=== PATIENT | female | born 1980 | race Caucasian/White ===

== ENCOUNTER → 2024-12-10 | Outpatient (CLI) | payer SELFPAY ==
[2024-12-10 10:04] VITALS: TEMP 98.5
[2024-12-10 11:05] VITALS: BP 138/86; O2SAT 98
== END ==
LOC: M WHCPRO 09:52
PROVIDERS: ATTEND Surgery
DX: N63.15 Unspecified lump in the right breast, overlapping quadrants (principal); C50.411 Malignant neoplasm of upper-outer quadrant of right female breast; C77.3 Secondary and unspecified malignant neoplasm of axilla and upper limb lymph nodes
CPT/HCPCS: 10035; 19083; 38505; 77065; 88305; A4648

== ENCOUNTER → 2024-12-12 | Outpatient (CLI) | payer SELFPAY ==
[~2024-12-12] MED LIST: PROHANCE 279.3MG/ML 15ML VIAL ONE; PROHANCE 279.3MG/ML 5ML VIAL ONE
== END ==
LOC: M PLAIMG 12:01
PROVIDERS: ATTEND Surgery
DX: N63.15 Unspecified lump in the right breast, overlapping quadrants (principal); C50.811 Malignant neoplasm of overlapping sites of right female breast
CPT/HCPCS: A9576; C8908

== ENCOUNTER → 2024-12-30 | Outpatient (CLI) | payer SELFPAY | LOC: M CARPUL 15:18 | PROVIDERS: ATTEND Specialist | DX: C50.919 Malignant neoplasm of unspecified site of unspecified female breast (principal); I34.0 Nonrheumatic mitral (valve) insufficiency; I36.1 Nonrheumatic tricuspid (valve) insufficiency ==

== ENCOUNTER → 2024-12-30 | Outpatient (CLI) | payer SELFPAY ==
[~2024-12-30] MED LIST changes: -PROHANCE 279.3MG/ML 15ML VIAL ONE; -PROHANCE 279.3MG/ML 5ML VIAL ONE; +SODIUM CHLORIDE 0.9% INJ 10 ML SYR IV PRN; +SODIUM CHLORIDE 0.9% INJ 10 ML SYR IV SCH
== END ==
LOC: M IRPRO 09:50
PROVIDERS: ATTEND Specialist
DX: C50.919 Malignant neoplasm of unspecified site of unspecified female breast (principal)
CPT/HCPCS: 36569; C1751

== ENCOUNTER → 2025-01-05 | Outpatient (CLI) | payer SELFPAY | LOC: M PLARAD 11:15 | PROVIDERS: ATTEND Surgery | DX: C50.811 Malignant neoplasm of overlapping sites of right female breast (principal) | CPT/HCPCS: 78816; A9552 ==

== ENCOUNTER → 2025-02-12 | Outpatient (CLI) | payer SELFPAY ==
[~2025-02-12] VITALS: Ht 160 cm; Wt 88.2 kg
[~2025-02-12] MED LIST changes: +ONDA-84 PO; +PROC10TA5 PO; -SODIUM CHLORIDE 0.9% INJ 10 ML SYR IV PRN; -SODIUM CHLORIDE 0.9% INJ 10 ML SYR IV SCH
[2025-02-12 12:20] VITALS: TEMP 98.1
[2025-02-12] MEDS: NS (Normal Saline) 0.9% 1,000 ML IV SCH (13:06)
[2025-02-12] MEDS: ceFAZolin SODIUM 2 GM in DEXTROSE 5% (D5W) ADV/MINI-BAG 50 ML IV ONE (13:06)
[2025-02-12] MEDS: MIDAZOLAM INJ 2 MG/2 ML VIAL IV PRN (13:06)
[2025-02-12] MEDS: LIDOCAINE 1% MDV 20 ML VIAL SC SCH (13:16)
[2025-02-12 14:00] VITALS: BP 124/66; O2SAT 98
== END ==
LOC: M IRPRO 11:55
PROVIDERS: ATTEND Specialist
DX: C50.919 Malignant neoplasm of unspecified site of unspecified female breast (principal)
CPT/HCPCS: 36561; 99152; J0688; J1642; J2250; J3010

== ENCOUNTER → 2025-03-02 | Outpatient (POV) | payer SELFPAY ==
[~2025-03-02] VITALS: Ht 162.6 cm; Wt 90.9 kg
[~2025-03-02] MED LIST changes: +LIDO30CR18 TOP
[2025-03-02 09:56] VITALS: BP 124/77; O2SAT 99
== END ==
LOC: M IRPOV 09:49
PROVIDERS: ATTEND Registered Nurse School
DX: Z45.2 Encounter for adjustment and management of vascular access device (principal); C50.919 Malignant neoplasm of unspecified site of unspecified female breast

== ENCOUNTER → 2025-03-09 | Outpatient (CLI) | payer SELFPAY | LOC: M PLALAB 11:55 | PROVIDERS: ATTEND Surgery | DX: C50.811 Malignant neoplasm of overlapping sites of right female breast (principal) ==

== ENCOUNTER → 2025-05-07 | Outpatient (CLI) | payer SELFPAY ==
[~2025-05-07] MED LIST changes: +ISOVUE-370 76% 100 ML VIAL As Ordered ONE
== END ==
LOC: M RAD 16:04
DX: R74.8 Abnormal levels of other serum enzymes (principal); C50.919 Malignant neoplasm of unspecified site of unspecified female breast; R93.89 Abnormal findings on diagnostic imaging of other specified body structures; R59.0 Localized enlarged lymph nodes
CPT/HCPCS: 71260; 74177; Q9967

== ENCOUNTER → 2025-05-25 | Outpatient (CLI) | payer SELFPAY ==
[~2025-05-25] MED LIST changes: -ISOVUE-370 76% 100 ML VIAL As Ordered ONE
== END ==
LOC: M WHC 14:05
PROVIDERS: ATTEND Surgery
DX: C50.811 Malignant neoplasm of overlapping sites of right female breast (principal); R92.2 Inconclusive mammogram
CPT/HCPCS: 76642; 77065; G0279